=== PATIENT | female | born 1955 | race Caucasian/White ===

== ENCOUNTER 2016-08-11 22:39 | Emergency (ER) | payer OTHER ==
[2012-06-18 10:16] VITALS: BMI 24.9
[2016-08-11 23:28] LABS: BASOPHILS 0.3 % (0.0-2.0); EOSINOPHILS 0.2 % (0-7); HEMATOCRIT 40.7 % (36.0-48.0); HEMOGLOBIN 13.3 g/dL (12-16); IMMATURE GRANULOCYTES 0.3 % (0-5); LYMPHOCYTES 10.5 % (15-50); MCH 29.1 pg (26.0-34.0); MCHC 32.7 g/dL (31.0-37.0); MCV 89.1 fL (80.0-100.0); MEAN PLATELET VOLUME 9.7 fL (7.4-10.4); MONOCYTES 6.4 % (2-11); NEUTROPHILS 82.3 % (40-80); PLATELET COUNT 213 10x3/uL (130-400); RBC 4.57 10x6/uL (4.00-5.40); RDW 13.4 % (11.5-14.5); WBC 14.1 10x3/uL (4.8-10.8)
[2016-08-11 23:44] LABS: ALKALINE PHOSPHATASE 57 U/L (46-116); ALT (SGPT) 23 U/L (10-68); BILIRUBIN - TOTAL 0.28 mg/dL (0.2-1.3); CALC OSMOLALITY 290 mosm/kg (275-300); CALCIUM 8.6 mg/dL (8.5-10.1); CARBON DIOXIDE 29.3 mmol/L (21.0-32.0); CHLORIDE - SERUM 107 mmol/L (98-107); CREATININE - SERUM 0.9 mg/dL (0.6-1.3); POTASSIUM - SERUM 3.9 mmol/L (3.5-5.1); PROTEIN - SERUM 6.7 g/dL (6.4-8.2); SODIUM 145 mmol/L (136-145); UREA NITROGEN 17 mg/dL (7-18); eGFR NON AFRICAN AMERICAN 67 mL/min (90-120)
[2016-08-11 23:46] LABS: GLUCOSE 107 mg/dL (74-106)
[2016-08-11 23:47] LABS: CREATINE KINASE 29 UL (21-215); TROPONIN-I < 0.017 ng/mL (0.000-0.060)
== END 2016-08-12 02:09 | disposition home or self-care (01) ==
LOC: D.ER 22:39
PROVIDERS: Family Medicine
DX: R06.00 Dyspnea, unspecified (principal); J95.00 Unspecified tracheostomy complication

== ENCOUNTER 2016-12-20 15:54 | Inpatient (IN) | payer OTHER ==
[~2016-12-20] VITALS: Ht 162.6 cm; Wt 74.2 kg
[2016-12-20] MEDS ORDERED: METFORMIN HCL500 M1 PO (16:14)
[2016-12-20] MEDS ORDERED: ZOLOFT100 MG PO (16:15)
[2016-12-20] MEDS ORDERED: GLUCOPHAGE1000 MG PO (16:17)
[2016-12-20 16:27] VITALS: BP 145/65; BMI 27.7
--- NOTE | 2016-12-20 16:43 | NUR ---
PATIENT ARRIVED DIRECT ADMIT. IV STARTED IN L FOREARM BY JUVENAL KIM. 22 G ON 1ST ATTEMPT. IV FLUIDS NS STARTED. ASSESSMENT AND HISTORY DONE. VOMITED CLEAR EMESIS APPROX 200 CC. MEDICATED WITH ZOFRAN.
[2016-12-20 17:19] LABS: HEMATOCRIT 40.3 % (36.0-48.0); HEMOGLOBIN 13.1 g/dL (12-16); MCH 29.2 pg (26.0-34.0); MCHC 32.5 g/dL (31.0-37.0); MEAN PLATELET VOLUME 10.6 fL (7.4-10.4); PLATELET COUNT 218 10x3/uL (130-400); RBC 4.48 10x6/uL (4.00-5.40); RDW 14.1 % (11.5-14.5); WBC 21.8 10x3/uL (4.8-10.8)
[2016-12-20 17:27] LABS: ALBUMIN 3.1 g/dL (3.4-5.0); ANION GAP 12.7 mmol/L (8-16); BILIRUBIN - TOTAL 0.96 mg/dL (0.2-1.3); CALCIUM 9.5 mg/dL (8.5-10.1); CARBON DIOXIDE 31.2 mmol/L (21.0-32.0); CREATININE - SERUM 1.9 mg/dL (0.6-1.3); POTASSIUM - SERUM 3.9 mmol/L (3.5-5.1); PROTEIN - SERUM 8.1 g/dL (6.4-8.2)
[2016-12-20 17:39] LABS: LYMPHOCYTES 4 % (15-50); MONOCYTES 1 % (2-11); NEUTROPHILS 84 % (40-80); PLATELET ESTIMATE NORMAL
[2016-12-20] MEDS ORDERED: HUMALOG MIX 75/10 ML SC ×2 (18:21)
[2016-12-20] MEDS ORDERED: HUMALOG 30100 UNITS/ SC (18:22)
--- NOTE | 2016-12-20 18:31 | NUR ---
FSBS 498. 12 UNITS OF INSULIN GIVEN PER SS. MED REC. UPDATED MOST ACCURATE FOR WHAT PT IS CURRENTLY ON. PT SITTING UP IN BED RESTING QUIETLY WITH FAMILY AT BEDSIDE. DENIES ANY CURRENT PAIN OR NEEDS. WILL CTM.
[2016-12-20 19:00] VITALS: BP 144/69
--- NOTE | 2016-12-20 21:10 | NUR ---
ZOFRAN 4MG IV ADMIN FOR NAUSEA/VOMITING CLEAR EMESIS. CHECKED BS WITH GLUCOMETER AT 314. ADMIN 8 UNITS HUMALOG. REQUESTED SLEEPING PILL. STATING "I HAVE NOT SLEEP GOOD FOR 4 DAYS". INFORMED HOUSE SUPVR OF PATIENT'S REQUEST.
--- NOTE | 2016-12-20 22:30 | NUR ---
ADMIN AMBIEN 10 MG PO WITH FEW SIPS OF WATER. REQUESTED LIGHTS OFF AND DOOR CLOSED TO SLEEP.
[2016-12-21] VITALS: BP 151/52
--- NOTE | 2016-12-21 02:00 | NUR ---
RESTING QUIETLY WITH EYES CLOSED. NO S/S OF DISTRESS OR DISCOMFORT. CALL LIGHT IN REACH. WILL CONT TO MONITOR.
--- NOTE | 2016-12-21 04:40 | NUR ---
ADMIN ZOFRAN 4MG IV FOR NAUSEA AND VOMITING.
--- NOTE | 2016-12-21 06:32 | NUR ---
ADMIN HUMALOG 6 UNITS FOR BS 289. NO C/O NAUSEA.
--- NOTE | 2016-12-21 07:00 | NUR ---
RECEIVED REPORT. ASSUMED CARE OF PATIENT. CALL LIGHT EM JACOBO. PATIENT RESTING ON HER RIGHT LATERAL SIDE. EASILY AROUSED. RESP EVEN AND UNLABORED. NO DISTRESS.
[2016-12-21 07:42] VITALS: BP 122/64
--- NOTE | 2016-12-21 08:58 | NUR ---
AM GLUCOPHAGE HELD PATIENT IS NPO AND RECEIVING COVERAGE WITH SLIDING SCALE INSULIN AT THIS TIME.
--- NOTE | 2016-12-21 11:35 | NUR ---
FSBS 256. 6 UNITS HUMALOG ADMINISTERED PER SLIDING SCALE. PATIENT CONTINUES TO HAVE NAUSEA AND ONE EPISODE OF EMESIS THIS AM BUT IS ASKING FOR CRANBERRY JUICE. INFORMED PATIENT REQUEST WILL BE PRESENTED TO .
[2016-12-21 11:53] VITALS: Ht 162.6 cm; Wt 74.2 kg
[2016-12-21 12:20] VITALS: BP 114/49
[2016-12-21 15:52] VITALS: BP 117/62
--- NOTE | 2016-12-21 16:40 | NUR ---
FSBS 242. 4 UNITS HUMALOG ADMINISTERED AT THIS TIME. NO DISTRESS.
--- NOTE | 2016-12-21 19:47 | NUR ---
PT RESTING ON LEFT SIDE. C/O THIRST. DENIES ANY OTHER NEEDS OR COMPLAINTS AT THIS TIME. NO S/S OF DISTRESS. WILL CONTINUE TO MONITOR
[2016-12-21 20:00] VITALS: BP 125/70
--- NOTE | 2016-12-21 23:44 | NUR ---
PT RESTING IN BED. NS INFUSING AT 75 TO LEFT FOREARM. PT DENIES ANY NEEDS AT THIS TIME. NO S/S OF DISTRESS. WILL CONTINUE TO MONITOR
--- NOTE | 2016-12-22 03:25 | NUR ---
PT SITTING ON SIDE OF BED. S/O NAUSEA. ZOFRAN GIVEN. A COOL WASHCLOTH GIVEN. NO S/S OF DISTRESS. WILL CONTINUE TO MONITOR
[2016-12-22 04:00] VITALS: BP 116/58
--- NOTE | 2016-12-22 05:52 | NUR ---
PT ASLEEP. RESPIRATIONS EVEN AND UNLABORED. NO S/S OF DISTRESS WILL CONTINUE TO MONITOR
--- NOTE | 2016-12-22 07:00 | NUR ---
RECEIVED REPORT. ASSUMED CARE OF PATIENT. PATIENT GETTING BACK TO BED AFTER AM SHOWER. CONNECTED TO IV FLUIDS ORDERED AT THIS TIME. RESP EVEN AND UNLABORED. DENIES NEEDS AT THIS TIME. NO DISTRESS.
--- NOTE | 2016-12-22 07:15 | NUR ---
PT IV IN LEFT FOREARM REMOVED WITH CATH INTACT. NEW 20G TO RIGHT FOREARM. PATENT. DRESSING CLEAN AND DRY. SWAB CAPS IN USE, HOOKED TO NS INFUSING AT 75
[2016-12-22 07:38] LABS: BASOPHILS 0.2 % (0-2); EOSINOPHILS 0.5 % (0-7); HEMATOCRIT 37.3 % (36.0-48.0); HEMOGLOBIN 11.8 g/dL (12-16); IMMATURE GRANULOCYTES 0.3 % (0-5); LYMPHOCYTES 6.8 % (15-50); MCH 28.9 pg (26.0-34.0); MCHC 31.6 g/dL (31.0-37.0); MCV 91.2 fL (80.0-100.0); MEAN PLATELET VOLUME 9.5 fL (7.4-10.4); MONOCYTES 7.2 % (2-11); PLATELET COUNT 204 10x3/uL (130-400); RBC 4.09 10x6/uL (4.00-5.40); RDW 14.2 % (11.5-14.5)
[2016-12-22 07:43] LABS: WBC 10.5 10x3/uL (4.8-10.8)
[2016-12-22 07:48] LABS: ANION GAP 13.9 mmol/L (8-16); CALCIUM 9.1 mg/dL (8.5-10.1); CARBON DIOXIDE 28.5 mmol/L (21.0-32.0); CREATININE - SERUM 1.5 mg/dL (0.6-1.3); POTASSIUM - SERUM 3.4 mmol/L (3.5-5.1)
[2016-12-22 08:00] VITALS: BP 135/62
[2016-12-22 10:55] LABS: APPEARANCE CLEAR (CLEAR); BACTERIA FEW /hpf (NONE SEEN); BILIRUBIN NEGATIVE (NEGATIVE); COLOR YELLOW (YELLOW); EPITHELIAL CELLS 0-5 /hpf (0-5); GLUCOSE 250 mg/dL (NEGATIVE); KETONE NEGATIVE (NEGATIVE); LEUKOCYTE ESTERASE TRACE (NEGATIVE); NITRITE NEGATIVE (NEGATIVE); PROTEIN NEGATIVE (NEGATIVE); RED CELLS - URINE 0-5 /hpf (0-5); SPECIFIC GRAVITY 1.015 (1.005-1.020); UROBILINOGEN NORMAL (NORMAL)
--- NOTE | 2016-12-22 11:33 | NUR ---
FSBS 288. 6 UNITS HUMALOG ADMINISTERED PER SLIDING SCALE. NO DISTRESS. CONSUMING POPSICKLE AT THIS TIME.
[2016-12-22 12:00] VITALS: BP 125/54
--- NOTE | 2016-12-22 13:07 | NUR ---
MEDICATED FOR NAUSEA. PATIENT WAS ABLE TO KEEP LUNCH DOWN BUT STARTED HAVING A SLIGHT NAUSEATED FEELING. SITTING UP IN BED AT THIS TIME, VISITOR AT BEDSIDE. NO DISTRESS. IV FLUIDS INFUSING ORDERED.
[2016-12-22 16:00] VITALS: BP 141/67
--- NOTE | 2016-12-22 19:26 | NUR ---
PT LAYING IN BED RESTING, C/O SEVERAL BMS OF LOOSE STOOL. DENIES ANY OTHER NEEDS. WILL CONTINUE TO MONTIOR
[2016-12-22 22:41] VITALS: BP 132/64
--- NOTE | 2016-12-23 02:09 | NUR ---
PT C/O FREQUENT STOOL THAT IS LOOSE. HAT PUT IN TOILET FOR CDT CHECK. RAW ON RECTUM BUT PASTE APPLIED. PT ALSO COMPLAINS OF NOT BEING ABLE TO SLEEP.PT ALSO COMPLAINS OF NAUSEA ZOFRAN IS OFFERED NO S/S OF DISTRESS. NO OTHER NEEDS WILL CONTINUE TO MONITOR
[2016-12-23 02:51] VITALS: BP 122/58
--- NOTE | 2016-12-23 04:57 | NUR ---
PT RESTING IN BED. STILL C/O FREQUENT LOOSE STOOLS. CDT IS NEG. PT STILL COMPLAINS ABOUT NOT BEING ABLE TO SLEEP. NO S/S OF DISTRESS. RESPIRATIONS EVEN AND UNLABORED. WILL CONTINUE TO MONITOR
[2016-12-23 05:23] LABS: BASOPHILS 0.2 % (0-2); HEMATOCRIT 34.5 % (36.0-48.0); HEMOGLOBIN 10.8 g/dL (12-16); IMMATURE GRANULOCYTES 0.3 % (0-5); LYMPHOCYTES 11.7 % (15-50); MCH 28.3 pg (26.0-34.0); MCHC 31.3 g/dL (31.0-37.0); MCV 90.6 fL (80.0-100.0); MEAN PLATELET VOLUME 10.2 fL (7.4-10.4); MONOCYTES 10.4 % (2-11); NEUTROPHILS 76.4 % (40-80); PLATELET COUNT 220 10x3/uL (130-400); RBC 3.81 10x6/uL (4.00-5.40); RDW 13.9 % (11.5-14.5); WBC 9.1 10x3/uL (4.8-10.8)
[2016-12-23 05:27] VITALS: BP 127/51
[2016-12-23 05:37] LABS: ANION GAP 11.1 mmol/L (8-16); CALCIUM 8.3 mg/dL (8.5-10.1); CARBON DIOXIDE 27.9 mmol/L (21.0-32.0)
--- NOTE | 2016-12-23 06:48 | NUR ---
PT BLOOD SUGAR WAS 270 6 UNITS OF HUMALOG GIVEN. PT RESTING NO S/S OF DISTRESS. WILL CONTINUE TO MONITOR
--- NOTE | 2016-12-23 07:30 | NUR ---
INTRODUCED MYSELF TO PT PRIMARY RN FOR TODAYS SHIFT. PT IS A&O SITTING UP IN BED RESTING QUIETLY. SHIFT ASSESSMENT COMPLETED. PT C/O DIARRHEA AND HAS NOTHING ORDERED, WILL CALL DOCTOR AND TRY TO OBTAIN ORDER. PT VOICED THANKS AND DENIES ANY CURRENT NEEDS. CL IN REACH, BED IN LOWEST, SIDE RAILS X2. WILL CPOC.
[2016-12-23 08:00] VITALS: BP 127/58
--- NOTE | 2016-12-23 09:59 | NUR ---
PT C/O DIARRHEA FOR THE PAST SEVERAL DAYS AND REQUESTED SOMETHING TO HELP. PROVIDED PT WITH PRN IMMODIUM. PT VOICED THANKS AND WOULD LIKE TO CONTINUE RESTING AT THIS TIME. DENIES ANY FURTHER NEEDS. CL IN REACH, BED IN LOWEST, SIDE RAILS X2. WILL CPOC.
--- NOTE | 2016-12-23 11:00 | NUR ---
FSBS 210. PT REC'D 4 UNITS OF SS INSULIN. PT C/O NAUSEA AND ALSO REC'D ZOFRAN REQUESTED. PT READY TO TRY MORE ADVANCED FOOD AND HAS BEEN ADVANCED TO A FULL LIQUID. NO FURTHER NEEDS NOTED AT THIS TIME. CL IN REACH. WILL CPOC.
[2016-12-23 12:00] VITALS: BP 123/62
[2016-12-23 16:00] VITALS: BP 129/56
--- NOTE | 2016-12-23 17:12 | NUR ---
FSBS 301. PT REC'D 12 UNITS PER SS INSULIN. INTIATED PTS IVPB LEVAQUIN INFUSING VIA R.FA PIV WITH DRSG CDI. PT C/O STILL BEING NAUSEATED BUT NEVER HAS THROWN UP. WILL PROVIDE PT WITH MORE ZOFRAN. PT DENIES ANY FURTHER DIARRHEA AND VOICED THANKS FROM IMMODIUM. NO FURTHER NEEDS AT THIS TIME. CL IN REACH, BED IN LOWEST, SIDE RAILS X2. WILL CPOC.
--- NOTE | 2016-12-23 20:00 | NUR ---
PT RESTING IN ROOM. HAPPY ABOUT NOT HAVING LOOSE STOOLS TODAY AND SAYS HER RAW BUTTOCKS IS FEELING BETTER. PT DENIES ANY NEEDS AT THIS TIME. NO S/S OF DISTRESS WILL CONTINUE TO MONITOR
[2016-12-23 21:50] VITALS: BP 147/62
--- NOTE | 2016-12-23 21:55 | NUR ---
REPORT GIVEN TO JIN KIM FROM [facility]. WILL TRANSFER TO [facility] SOON I GIVE PT 10 UNITS FOR A BLOOD SUGAR OF 300. PHARMACY IS BRINGING IT NOW. PT IS PACKING AND GETTING READY TO GO
--- NOTE | 2016-12-23 22:30 | NUR ---
PT RECEIVED TO ROOM 1215 VIA WHEELCHAIR ACCOMPANIED BY SPEEDER TENDER AND RN FROM [facility]. PAIN NOTED TO IV SITE. PT C/O BURNING WHEN FLUIDS STARTED. IV REMOVED VIA JULIO SAUCEDA. CATHETER TIP INTACT. PT ORIENTED TO ROOM AND CALL LIGHT.
--- NOTE | 2016-12-23 22:42 | NUR ---
NEW IV INITIATED PER JULIO SAUCEDA X1 SUCCESSFUL ATTEMPT. PT TOLERATED WELL. PATENT. DRESSING CDI. NS INITIATED AT THIS TIME. ASSESSMENT COMPLETED PER FLOW SHEET. PT DENIES NEEDS. BED LOW. PHONE AND CALL LIGHT IN REACH. SRX2.
[2016-12-24 00:05] VITALS: BP 125/76
--- NOTE | 2016-12-24 00:05 | NUR ---
PT RESTING QUIETLY AT THIS TIME WATCHING TV. VSS. PT DENIES NEEDS. BED LOW. PHONE AND CALL LIGHT IN REACH. SRX2.
--- NOTE | 2016-12-24 02:10 | NUR ---
PT RESTING QUIETLY IN BED ON CELL PHONE. DENIES NEEDS. BED LOW. PHONE AND CALL LIGHT IN REACH. SRX2.
[2016-12-24 03:55] VITALS: BP 136/73
--- NOTE | 2016-12-24 03:55 | NUR ---
PT LYING IN BED RESTING QUIETLY WITH EYES CLOSED. AROUSED EASILY. VSS. PT DENIES NEEDS AT THIS TIME. BED LOW. PHONE AND CALL LIGHT IN REACH. SRX2.
--- NOTE | 2016-12-24 05:33 | NUR ---
PT RESTING QUIETLY AT THIS TIME WITH EYES CLOSED. RESPIRATIONS EVEN, NON-LABORED. NO ACUTE DISTRESS NOTED AT THIS TIME. BED LOW. PHONE AND CALL LIGHT IN REACH. SRX2.
[2016-12-24 06:08] LABS: ANION GAP 10.6 mmol/L (8-16); CARBON DIOXIDE 28.7 mmol/L (21.0-32.0); CREATININE - SERUM 0.9 mg/dL (0.6-1.3); POTASSIUM - SERUM 3.3 mmol/L (3.5-5.1)
--- NOTE | 2016-12-24 06:13 | NUR ---
PT FSBS 225 AT THIS TIME. ADMINISTERED 8 UNIT HUMALOG TO LLQ ABD. PT TOLERATED WELL.
[2016-12-24 06:18] LABS: BASOPHILS 0.2 % (0-2); EOSINOPHILS 0.9 % (0-7); HEMATOCRIT 34.4 % (36.0-48.0); HEMOGLOBIN 11.1 g/dL (12-16); IMMATURE GRANULOCYTES 0.7 % (0-5); LYMPHOCYTES 12.3 % (15-50); MCH 28.8 pg (26.0-34.0); MCHC 32.3 g/dL (31.0-37.0); MCV 89.4 fL (80.0-100.0); NEUTROPHILS 73.9 % (40-80); PLATELET COUNT 251 10x3/uL (130-400); RBC 3.85 10x6/uL (4.00-5.40); RDW 13.8 % (11.5-14.5)
[2016-12-24 07:15] VITALS: BP 143/72
--- NOTE | 2016-12-24 07:25 | NUR ---
PT WAS RECEIVED LYING IN BED. PT STATES THAT SHE IS A DIABETIC AND THEY ARE SENDING HER REGULAR DIET. SHE STATES HER PAIN IS A 4. SHE IS HURTING IN HER MER " AROUND MY KIDNEY AREAS". GEN- AWAKE AND ALERT. LUNGS- CLEAR. HEART- RRR. ABD- SOFT, NT. BS+. EXT- NO EDEMA NOTED. PT HAS IV LEFT WRIST WHICH IS INTACT AND PATENT. BED IS LOW, SIDE RAILS UP X 2 AND CALL LIGHT IN REACH.
--- NOTE | 2016-12-24 08:15 | NUR ---
PT IS RESTING IN BED. SHE OFFERS NO COMPLAINTS.
--- NOTE | 2016-12-24 09:00 | NUR ---
PT IS STILL HAVING PROBLEMS WITH DIARRHEA. GOT HER SOME ADULT DIAPERS.
--- NOTE | 2016-12-24 09:43 | NUR ---
PT REQUESTED IMMODIUM. STATES THAT SHE IS STILL HAVING DIARRHEA. IMMODIUM 2MG GIVEN PO.
--- NOTE | 2016-12-24 10:14 | NUR ---
PT IS RESTING IN BED. SHE OFFERS NO COMPLAINTS AT THIS TIME.
--- NOTE | 2016-12-24 10:54 | NUR ---
PT IS SLEEPING IV BAG CHANGED OUT. BED IS LOW, SIDE RAILS UP X 2 AND CALL LIGHT IN REACH.
--- NOTE | 2016-12-24 11:46 | NUR ---
PTS BS WAS 309. HUMALOG 12 UNITS GIVEN R ARM.
--- NOTE | 2016-12-24 12:21 | NUR ---
PT IS ON ZOLOFT 100 MG DAILY. ZOLOFT ORDERED.
--- NOTE | 2016-12-24 13:23 | NUR ---
PT IS LYING IN BED VISITING WITH FRIENDS. SHE OFFERS NO COMPLAINTS AT THIS TIME. CALLED PHARMACY TO GET HER ZOLOFT. THEY STATED THEY WOULD BRING IT.
--- NOTE | 2016-12-24 15:36 | NUR ---
PT IS LYING IN BED VISITING WITH FAMILY. SHE OFFERS NO COMPLAINTS. PT OBTAINED CLEAN CATCH URINE TO BE SENT TO LAB. CONTACTED LAB TO SWINE NUTRITIONIST SINCE I WAS THE ONLY ONE HERE.
[2016-12-24 16:02] LABS: APPEARANCE CLEAR (CLEAR); BILIRUBIN NEGATIVE (NEGATIVE); COLOR YELLOW (YELLOW); GLUCOSE 250 mg/dL (NEGATIVE); KETONE NEGATIVE (NEGATIVE); LEUKOCYTE ESTERASE TRACE (NEGATIVE); NITRITE NEGATIVE (NEGATIVE); PROTEIN NEGATIVE (NEGATIVE); UROBILINOGEN NORMAL (NORMAL)
[2016-12-24 16:03] LABS: EPITHELIAL CELLS OCC /hpf (0-5); RED CELLS - URINE OCC /hpf (0-5); WHITE CELLS - URINE 0-5 /hpf (0-5)
[2016-12-24 16:04] LABS: BACTERIA FEW /hpf (NONE SEEN)
--- NOTE | 2016-12-24 16:29 | NUR ---
PT REQUEST MOTRIN FOR PAIN. GIVEN PO 800 MG.
--- NOTE | 2016-12-24 17:04 | NUR ---
PTS BS WAS 232 GIVEN 12 UNITS OF HUMALOG LEFT UPPER ARM SUBCU. DEMETRIA LANZA RN WITNESSED.
[2016-12-24 20:30] VITALS: BP 135/72
--- NOTE | 2016-12-24 20:30 | NUR ---
PT RECEIVED SITTING UP IN BED WATCHING TV AT THIS TIME. VSS. IV NOTED TO LEFT WRIST INFUSING NS @ 75 WITH INTERMITTENT IVPB ANTIBIOTICS. HEART RRR. LUNG SOUNDS CLEAR BILATERALLY. BOWEL SOUNDS ACTIVE X4 QUADRENTS. PEDAL PULSES EQUAL BILATERALLY. PT DENIES NEEDS AT THIS TIME. BED LOW. PHONE AND CALL LIGHT IN REACH. SRX2.
--- NOTE | 2016-12-24 22:10 | NUR ---
PT RESTING QUIETLY WITH EYES CLOSED. RESPIRATIONS EVEN, NON-LABORED. NO ACUTE DISTRESS NOTED AT THIS TIME. BED LOW. PHONE AND CALL LIGHT IN REACH. SRX2.
--- NOTE | 2016-12-24 23:54 | NUR ---
PT RESTING QUIETLY AT THIS TIME WITH EYES CLOSED. AROUSED EASILY. PT REFUSED HUMALOG SLIDING SCALE AND ONLY WANTED TO TAKE HUMALOG 75/25 AT THIS TIME FOR FSBS OF 299. ADMINISTERED TO RLQ. VSS. PT DENIES NEEDS. BED LOW. PHONE AND CALL LIGHT IN REACH. SRX2.
[2016-12-25 00:19] VITALS: BP 140/70
[2016-12-25 03:20] VITALS: BP 137/76
--- NOTE | 2016-12-25 03:20 | NUR ---
PT RESTING QUIETLY AT THIS TIME WITH EYES CLOSED. AROUSED EASILY. DENIES NEEDS AT THIS TIME. BED LOW. PHONE AND CALL LIGHT IN REACH. SRX2.
[2016-12-25 05:02] LABS: BASOPHILS 0.6 % (0-2); EOSINOPHILS 1.2 % (0-7); HEMATOCRIT 34.8 % (36.0-48.0); HEMOGLOBIN 11.1 g/dL (12-16); IMMATURE GRANULOCYTES 1.5 % (0-5); LYMPHOCYTES 16.3 % (15-50); MCH 28.4 pg (26.0-34.0); MCHC 31.9 g/dL (31.0-37.0); MEAN PLATELET VOLUME 9.4 fL (7.4-10.4); MONOCYTES 11.4 % (2-11); PLATELET COUNT 270 10x3/uL (130-400); RBC 3.91 10x6/uL (4.00-5.40); RDW 13.8 % (11.5-14.5); WBC 8.2 10x3/uL (4.8-10.8)
[2016-12-25 05:18] LABS: ANION GAP 11.7 mmol/L (8-16); CALCIUM 8.4 mg/dL (8.5-10.1); CARBON DIOXIDE 27.6 mmol/L (21.0-32.0); CREATININE - SERUM 0.9 mg/dL (0.6-1.3)
[2016-12-25 05:19] LABS: POTASSIUM - SERUM 3.3 mmol/L (3.5-5.1)
[2016-12-25 07:35] VITALS: BP 148/63
--- NOTE | 2016-12-25 08:06 | NUR ---
SITTING UP IN BED. ALERT AND ORIENTED X4. DENIES ANY NEEDS AT THIS TIME. CALL LIGHT IN REACH. WILL CONTINUE TO MONITOR.
--- NOTE | 2016-12-25 09:30 | NUR ---
LYING IN BED RESTING QUIETLY. DENIES ANY PAIN OR NEEDS AT THIS TIME. CALL LIGHT IN REACH. WILL CONTINUE TO MONITOR.
--- NOTE | 2016-12-25 12:34 | NUR ---
SITTING UP IN BED EATING LUNCH. DENIES ANY NEEDS AT THIS TIME. CALL LIGHT IN REACH.
--- NOTE | 2016-12-25 14:02 | NUR ---
SITTING UP IN BED. RESPIRATORY AT BEDSIDE ADMINISTERING UPDRAFT TREATMENT, NAD NOTED. CALL LIGHT IN REACH. WILL CONTINUE TO MONITOR.
--- NOTE | 2016-12-25 15:41 | NUR ---
SITTING UP IN BED WATCHING TV. DENIES ANY NEEDS. CHANGED OUT NS TO 1/2 NS @ 75ML/HR PER ORDERS. DENIES ANY PAIN OR DISCOMFORT. WILL CONTINUE TO MONITOR. CALL LIGHT IN REACH
[2016-12-25 16:00] VITALS: BP 153/50
--- NOTE | 2016-12-25 16:13 | NUR ---
* Is the patient Alert and Oriented? Yes 0 * How many steps to enter\exit or inside your home? 5 0 * PCP Dr. Nguyen 0 * Pharmacy [facility] on [address] 0 * Preadmission Environment Home Alone 0 * ADLs Independent 0 * Equipment Cane Walker Wheelchair 0 * List name and contact numbers for known caregivers / representatives who currently or will assist patient after discharge: - Pricilla Wallis [phone] 0 * Additional services required to return to the preadmission environment? No 0 * Can the patient safely return to the preadmission environment? Yes 0 * Has this patient been hospitalized within the prior 30 days at any hospital? No Patient Name: DON SEN Admission Status: Urgent Accout number: [id number] Admission Date: 12-23-2016 : 1955 Admission Diagnosis: Attending: ELIZA Current LOS: 2 Anticipated DC Date: 12-26-2016 Planned Disposition: Home Primary Insurance: [employer] [facility] Discharge Planning Comments: CM met with patient to assess dc plans/needs. Patient states she lives alone and is independent with all ADL's & IADL's. She has a walker, WC, & cane but does not use them. She has had home health services in the past with [facility]. She does not think she will need HH at discharge. She states her sister lives next door and will help her with any needs. CM will follow & assist as needed. Arc Air Operator: Adia Zacarias
--- NOTE | 2016-12-25 18:36 | NUR ---
RESITED LEFT FOREARM IV DUE TO INFILTRATING TO RIGHT WRIST 22G X2 ATTEMPTS, DRESSING INTACT AND HOOKED UP TO LEVOFLOXACIN 100ML/HR. PT TOLERATED WELL. DENIES ANY NEEDS OR CONCERNS AT THIS TIME. WILL CONTINUE TO MONITOR IV.
[2016-12-25 19:21] VITALS: BP 139/48
--- NOTE | 2016-12-25 19:21 | NUR ---
ASSESSMENT PER FLOW SHEET, VS OBTAINED, IV IN RIGHT WRIST INTACT WITH NO REDNESS OR EDEMA INFUSING VIA PUMP 1/2NS AT 100 ML/HR, PT REPORTS FLATUS, NO BM TODAY, AND VOIDING WITH NO DIFFICULTY, PT RATES FLANK PAIN 2/10, STATES "IT'S NOT THAT BAD", DENIES NEED FOR PAIN MED, PT DENIES NEEDS AT THIS TIME
--- NOTE | 2016-12-25 20:23 | NUR ---
PT WATCHING TV, REQUESTED AND SERVED DIET LEMON TORRES MARTINEZ, DENIES FURTHER NEEDS
--- NOTE | 2016-12-25 21:17 | NUR ---
PT AWAKE, FSBS 106, NO INSULIN PER SLIDING SCALE, PT REFUSES /25, PT REQUESTS SOMETHING TO SLEEP, INFORMED PT THAT I WILL CHECK AND SEE WHAT IS ORDERED, PT VERBALIZES UNDERSTANDING
--- NOTE | 2016-12-25 21:40 | NUR ---
ADM RESTORIL PO PER MD ORDERS, SEE EMAR
--- NOTE | 2016-12-25 22:30 | NUR ---
PT RESTING WITH EYES CLOSED, RESP QUIET, NO DISTRESS NOTED, LEFT UNDISTURBED AT THIS TIME
--- NOTE | 2016-12-26 00:32 | NUR ---
PT RESTING WITH EYES CLOSED, RESP QUIET, NO DISTRESS NOTED, LEFT UNDISTURBED AT THIS TIME
--- NOTE | 2016-12-26 02:15 | NUR ---
PT RESTING WITH EYES CLOSED, RESP QUIET, NO DISTRESS NOTED, LEFT UNDISTURBED AT THIS TIME
[2016-12-26 03:30] VITALS: BP 144/42
--- NOTE | 2016-12-26 03:30 | NUR ---
PT AWAKE, VS OBTAINED, PUMPS CLEARED, PT DENIES NEEDS OR PAIN AT THIS TIME
--- NOTE | 2016-12-26 04:13 | NUR ---
NEW BAG OF 1/2NS HUNG PER MD ORDERS, SEE EMAR, EMPTIED 1200 MLS OF YELLOW URINE FROM [facility], PT REPORTS 4 VOIDS
--- NOTE | 2016-12-26 05:36 | NUR ---
PT AWAKE, ADM PROTONIX PO PER MD ORDERS, PT REQUESTED AND PROVIDED EXTRA BLANKET, DENIES FURTHER NEEDS
--- NOTE | 2016-12-26 07:00 | NUR ---
SHIFT REPORT TO DAY SHIFT
[2016-12-26 07:01] LABS: BASOPHILS 0.4 % (0-2); EOSINOPHILS 1.3 % (0-7); HEMATOCRIT 32.8 % (36.0-48.0); HEMOGLOBIN 10.7 g/dL (12-16); IMMATURE GRANULOCYTES 3.6 % (0-5); LYMPHOCYTES 21.1 % (15-50); MCH 28.9 pg (26.0-34.0); MCHC 32.6 g/dL (31.0-37.0); MCV 88.6 fL (80.0-100.0); MEAN PLATELET VOLUME 9.5 fL (7.4-10.4); NEUTROPHILS 64.6 % (40-80); PLATELET COUNT 278 10x3/uL (130-400); RDW 14.1 % (11.5-14.5); WBC 7.4 10x3/uL (4.8-10.8)
[2016-12-26 07:10] LABS: ANION GAP 9.8 mmol/L (8-16); CALCIUM 8.4 mg/dL (8.5-10.1); CARBON DIOXIDE 29.7 mmol/L (21.0-32.0); CREATININE - SERUM 0.9 mg/dL (0.6-1.3); POTASSIUM - SERUM 3.5 mmol/L (3.5-5.1)
--- NOTE | 2016-12-26 07:30 | NUR ---
LYING ON LEFT SIDE EYES CLOSED RESTING QUIETLY. EASILY AROUSED WITH VERBAL STIMULI. DENIES ANY PAIN OR DISCOMFORT. CALL LIGHT IN REACH. WILL CONTINUE TO MONITOR.
[2016-12-26 07:45] VITALS: BP 135/51
--- NOTE | 2016-12-26 09:45 | NUR ---
SITTING UP IN BED LOOKING AT PHONE. DENIES ANY PAIN OR DISCOMFORT. ALERT AND ORIENTED X4. CALL LIGHT IN REACH. WILL CONTINUE TO MONITOR.
--- NOTE | 2016-12-26 13:08 | NUR ---
Nutrition Follow Up: Pt reported that her appetite was improving. She stated that she is feeling much better. Pt is eating 63% meal avg on a diabetic diet. +BM 12/23/16. Wt stable. Labs reviewed. Meds noted. Rec continue current diet as tolerated. RD following.
[2016-12-26] MEDS ORDERED: LEVAQUIN500 MG PO (14:06)
--- NOTE | 2016-12-26 15:11 | NUR ---
SITTING UP IN BED DOING CROSSWORD PUZZLE. DENIES ANY CONCERNS AT THIS TIME. CALL LIGHT IN REACH
--- NOTE | 2016-12-26 16:05 | NUR ---
REVIEWED DISCHARGE INSTRUCTIONS AND MEDICATIONS WITH PATIENT. NO CONCERNS VOICED. PT REFUSED TO BE ESCORTED OUT VIA WHEELCHAIR. PATIENTS FAMILY HERE TO PICK HER UP UPON DISCHARGE PT WALKED WITH FAMILY.
== END 2016-12-26 17:23 | disposition home or self-care (01) | DRG 872 ==
LOC: D.M2 15:54 → OBSVTIME 15:54 → D.M2 15:54 → D.WS 12-23 22:08
PROVIDERS: Family Medicine; ADMIT Emergency Medicine
DX: A41.9 Sepsis, unspecified organism (principal); N39.0 Urinary tract infection, site not specified; B96.20 Unspecified Escherichia coli [E. coli] as the cause of diseases classified elsewhere; E11.40 Type 2 diabetes mellitus with diabetic neuropathy, unspecified; E11.65 Type 2 diabetes mellitus with hyperglycemia; I10 Essential (primary) hypertension; K21.9 Gastro-esophageal reflux disease without esophagitis; Z87.891 Personal history of nicotine dependence

== ENCOUNTER → 2017-01-01 15:03 | Outpatient (CLI) | payer OTHER ==
[2016-12-21 11:53] VITALS: BMI 27.6
[~2017-01-01 15:03] MED LIST: GLUCOPHAGE1000 MG PO; HUMALOG 30100 UNITS/ SC; HUMALOG MIX 75/10 ML SC; LEVAQUIN500 MG PO; METFORMIN HCL500 M1 PO; ZOLOFT100 MG PO
== END | disposition home or self-care (01) ==
LOC: D.MAMMO 12-26 09:00
DX: N63 Unspecified lump in breast (principal)

== ENCOUNTER → 2017-01-08 08:52 | Outpatient (CLI) | payer OTHER ==
[2016-12-21 11:53] VITALS: BMI 27.6
== END | disposition home or self-care (01) ==
LOC: D.US 08:52
DX: N63 Unspecified lump in breast (principal)

== ENCOUNTER 2017-01-12 22:13 | Inpatient (IN) | payer OTHER ==
[~2017-01-12] VITALS: Ht 162.6 cm; Wt 74.1 kg
[2017-01-12 22:49] LABS: BASOPHILS 0.2 % (0-2); EOSINOPHILS 0.6 % (0-7); HEMATOCRIT 46.2 % (36.0-48.0); HEMOGLOBIN 15.1 g/dL (12-16); IMMATURE GRANULOCYTES 0.3 % (0-5); LYMPHOCYTES 19.5 % (15-50); MCH 29.3 pg (26.0-34.0); MCHC 32.7 g/dL (31.0-37.0); MCV 89.5 fL (80.0-100.0); MEAN PLATELET VOLUME 9.4 fL (7.4-10.4); MONOCYTES 8.7 % (2-11); NEUTROPHILS 70.7 % (40-80); RBC 5.16 10x6/uL (4.00-5.40); RDW 14.1 % (11.5-14.5); WBC 10.6 10x3/uL (4.8-10.8)
[2017-01-12 22:51] LABS: PLATELET COUNT 356 10x3/uL (130-400)
[2017-01-12 22:52] LABS: APPEARANCE CLEAR (CLEAR); BILIRUBIN NEGATIVE (NEGATIVE); COLOR YELLOW (YELLOW); GLUCOSE NEGATIVE (NEGATIVE); KETONE NEGATIVE (NEGATIVE); LEUKOCYTE ESTERASE NEGATIVE (NEGATIVE); NITRITE NEGATIVE (NEGATIVE); PROTEIN NEGATIVE (NEGATIVE); SPECIFIC GRAVITY 1.015 (1.005-1.020); UROBILINOGEN NORMAL (NORMAL)
[2017-01-12 23:08] LABS: HELICOBACTER PYLORI IGG NEGATIVE (NEGATIVE)
[2017-01-12 23:19] LABS: ALBUMIN 3.9 g/dL (3.4-5.0); ANION GAP 14.5 mmol/L (8-16); BILIRUBIN - TOTAL 0.4 mg/dL (0.2-1.3); CALCIUM 9.1 mg/dL (8.5-10.1); CARBON DIOXIDE 30.5 mmol/L (21.0-32.0); CREATININE - SERUM 1.1 mg/dL (0.6-1.3); PROTEIN - SERUM 8.2 g/dL (6.4-8.2)
[2017-01-13] VITALS: BP 164/53
--- NOTE | 2017-01-13 00:17 | NUR ---
REPORT FROM JEANNE IN ER RECIEVED.
--- NOTE | 2017-01-13 01:00 | NUR ---
PT BROUGHT BY WHEELCHAIR TO ROOM 2124 AT 0019. ALERT/ORIENTED AND ABLE TO FOLLOW ALL DIRECTIONS. ADMISSION HISTORY AND ASSESSMENT COMPLETED. HOME MEDS REVIEWED.
--- NOTE | 2017-01-13 01:30 | NUR ---
DILAUDID TURBINE INSPECTOR INITIATED AND PT EDUCATION ON USAGE.
[2017-01-13 02:09] VITALS: BP 164/53; BMI 27.1
--- NOTE | 2017-01-13 03:34 | NUR ---
PT RESTING WITH EYES CLOSED. NO DISTRESS. MONITOR AND CPOC.
[2017-01-13 06:17] LABS: CHOL - HDL RATIO 5.7 ratio (2.3-4.1); LDL-HDL RATIO 3.7 ratio (1.5-3.5)
[2017-01-13 08:00] VITALS: BP 146/77
--- NOTE | 2017-01-13 09:53 | NUR ---
ASSESSMENT COMPLETED. PT HAS NO TELEMERTY. RIGHT UPPER ARM WITH NS AT 30 AND DILAUDID APPLICATION PROCESSOR AT 0.2. . UP AB RASHIDA. TO CT SCAN PER WC.
[2017-01-13 12:00] VITALS: BP 160/83
[2017-01-13 12:25] LABS: BASOPHILS 0.3 % (0-2); EOSINOPHILS 0.6 % (0-7); HEMATOCRIT 43.6 % (36.0-48.0); HEMOGLOBIN 13.6 g/dL (12-16); IMMATURE GRANULOCYTES 0.4 % (0-5); LYMPHOCYTES 27.6 % (15-50); MCH 28.6 pg (26.0-34.0); MCHC 31.2 g/dL (31.0-37.0); MEAN PLATELET VOLUME 9.5 fL (7.4-10.4); MONOCYTES 8.9 % (2-11); NEUTROPHILS 62.2 % (40-80); PLATELET COUNT 307 10x3/uL (130-400); RBC 4.75 10x6/uL (4.00-5.40); RDW 14.5 % (11.5-14.5)
[2017-01-13 12:29] LABS: MCV 91.8 fL (80.0-100.0)
[2017-01-13 12:30] LABS: ALBUMIN 3.2 g/dL (3.4-5.0); ANION GAP 14.4 mmol/L (8-16); BILIRUBIN - TOTAL 0.28 mg/dL (0.2-1.3); CALCIUM 8.5 mg/dL (8.5-10.1); CARBON DIOXIDE 26.1 mmol/L (21.0-32.0); POTASSIUM - SERUM 3.5 mmol/L (3.5-5.1); PROTEIN - SERUM 7.5 g/dL (6.4-8.2)
--- NOTE | 2017-01-13 13:36 | NUR ---
FAMILY AT BEDSIDE. DENIES ANY NEEDS. CALL LIGHT IN REACH WITH ST UP. ONSITE HEALTH COACH PUMP IN USE
[2017-01-13 13:38] VITALS: Ht 162.6 cm; Wt 74.1 kg
--- NOTE | 2017-01-13 14:29 | NUR ---
RESTING QUIETLY NAD NOTED
[2017-01-13 16:00] VITALS: BP 145/70
--- NOTE | 2017-01-13 18:43 | NUR ---
LYING QUIETLY. IV TO NS AT 100 CC/HR.NPO AT MN FOR EST TOMORROW. WILL MONITOR
[2017-01-13 19:00] VITALS: BP 139/62
--- NOTE | 2017-01-13 19:30 | NUR ---
RECEIVED REPORT, WILL ASSUME CARE OF PT, PT SLEEPING ON L.SIDE, BED IS LOW, SRX2, CALL LIGHT IN REACH, WILL CONTINUE PLAN OF CARE
--- NOTE | 2017-01-13 19:45 | NUR ---
SPOKE WITH PATIENT AND HER BROTHER. DISCUSSED PLAN OF CARE AND PENDING PROCEDURES. PT CURRENTLY USING WOOD TYPE CUTTER FOR PAIN AND IS COMFORTABLE. MONITOR AND CPOC.
[2017-01-14] VITALS: BP 115/72
--- NOTE | 2017-01-14 03:21 | NUR ---
ASSESSMENT COMPLETE, SEE FLOWSHEET, PT HAS BEEN NPO SINCE MIDNIGHT, BED IS LOW, SRX2, CALL LIGHT IN REACH, WILL CONTINUE TO MONITOR
[2017-01-14 04:00] VITALS: BP 115/63
[2017-01-14 06:46] LABS: BASOPHILS 0.2 % (0-2); EOSINOPHILS 0.9 % (0-7); HEMATOCRIT 36.9 % (36.0-48.0); HEMOGLOBIN 11.6 g/dL (12-16); LYMPHOCYTES 29.3 % (15-50); MCH 28.6 pg (26.0-34.0); MCHC 31.4 g/dL (31.0-37.0); MCV 91.1 fL (80.0-100.0); MEAN PLATELET VOLUME 9.3 fL (7.4-10.4); MONOCYTES 10.1 % (2-11); NEUTROPHILS 59.5 % (40-80); RBC 4.05 10x6/uL (4.00-5.40); RDW 14.2 % (11.5-14.5)
[2017-01-14 06:50] LABS: PLATELET COUNT 222 10x3/uL (130-400); WBC 5.5 10x3/uL (4.8-10.8)
[2017-01-14 07:04] LABS: ALBUMIN 2.7 g/dL (3.4-5.0); ANION GAP 9.9 mmol/L (8-16); BILIRUBIN - TOTAL 0.3 mg/dL (0.2-1.3); CALCIUM 8.2 mg/dL (8.5-10.1); CARBON DIOXIDE 30.6 mmol/L (21.0-32.0); CREATININE - SERUM 0.9 mg/dL (0.6-1.3); POTASSIUM - SERUM 3.5 mmol/L (3.5-5.1); PROTEIN - SERUM 6.2 g/dL (6.4-8.2)
[2017-01-14 08:57] VITALS: BP 118/62
--- NOTE | 2017-01-14 09:18 | NUR ---
ASSESSMENT COMPLETED.RIGHT UPPER ARM IV OF .5NS AT 100. DILAUDID 0.2/03/12 FACTORY CLERK UMP, ALERT AND ORIENTED. UP AB RASHIDA. DENIES ANY NEEDS. CALL LIGHT IN REACH WITH SR UP. AWAITING CT SCAN. WILL MONITOR.
[2017-01-14 12:20] VITALS: BP 138/65
[2017-01-14 15:48] VITALS: BP 138/61
--- NOTE | 2017-01-14 18:39 | NUR ---
LYING QUIETLY . DENIES ANY NEEDS, AWAITING RENAL US SO THAT SHW CAN EAT. WILL MONITOR
--- NOTE | 2017-01-14 19:30 | NUR ---
RECEIVED REPORT, WILL ASSUME CARE OF PT, PT IS WAITING ON RENAL ULTRESOUND, I CHECK, IT WAS NOT ORDER, GAVE PT SOMETHING TO EAT, BED IS LOW, SRX2, WILL CONTINUE PLAN OF CARE
[2017-01-14 20:00] VITALS: BP 152/72
--- NOTE | 2017-01-15 02:35 | NUR ---
ASSESSMENT COMPLETE, SEE FLOWSHEET, PT AWAKE, DENIES ANY NEEDS, BED IS LOW, SRX2, CALL LIGHT IN REACH, WILL CONTINUE PLAN OF CARE
[2017-01-15 04:00] VITALS: BP 175/82
--- NOTE | 2017-01-15 05:17 | NUR ---
PT RESTING WITH NO DISTRESS. NO LONGER CONNECTED TO MANAGED CARE COORDINATOR, STATES SHE WILL BE GOING HOME TODAY AND DOES NOT NEED IT. CPOC.
[2017-01-15 06:42] LABS: BASOPHILS 0.4 % (0-2); EOSINOPHILS 2.1 % (0-7); HEMATOCRIT 38.9 % (36.0-48.0); HEMOGLOBIN 12.4 g/dL (12-16); IMMATURE GRANULOCYTES 0.2 % (0-5); LYMPHOCYTES 31.7 % (15-50); MCH 28.2 pg (26.0-34.0); MCHC 31.9 g/dL (31.0-37.0); MEAN PLATELET VOLUME 9.5 fL (7.4-10.4); MONOCYTES 10.3 % (2-11); NEUTROPHILS 55.3 % (40-80); PLATELET COUNT 237 10x3/uL (130-400); RBC 4.39 10x6/uL (4.00-5.40); RDW 13.8 % (11.5-14.5); WBC 5.2 10x3/uL (4.8-10.8)
[2017-01-15 06:43] LABS: ANION GAP 10.3 mmol/L (8-16); BILIRUBIN - TOTAL 0.43 mg/dL (0.2-1.3); CALCIUM 8.4 mg/dL (8.5-10.1); CARBON DIOXIDE 30.3 mmol/L (21.0-32.0); CREATININE - SERUM 0.9 mg/dL (0.6-1.3); POTASSIUM - SERUM 3.6 mmol/L (3.5-5.1); PROTEIN - SERUM 7.2 g/dL (6.4-8.2)
[2017-01-15 06:51] LABS: MCV 88.6 fL (80.0-100.0)
[2017-01-15 08:00] VITALS: BP 106/61
--- NOTE | 2017-01-15 08:15 | NUR ---
PATIENT AWAKE NO CO PAIN. WILL CONTINUE TO MONITOR.
--- NOTE | 2017-01-15 10:12 | NUR ---
RESTING QUIELTY WITHOUT ANY PAIN. INSTRUCTED ON OBTAINING STOOL SPECIMEN.
--- NOTE | 2017-01-15 13:10 | NUR ---
ORDER RECIEVED FOR DISCHARGE. IV REMOVED WITH TIP INTACT. NO BLEEDING NOR SIGNS OF INFECTION. DRESSING PLACED. DISCHARGE INSTRUCTIONS GIVEN TO PT AND SHE VERBALIZES UNDERSTANDING. PT REFUSES WC. WALKED WITH PT TO HER CAR PARKED OUT FRONT. LISANDRO WELL.
== END 2017-01-15 13:13 | disposition home or self-care (01) | DRG 440 ==
LOC: D.ER 22:13 → D.M2 23:51
PROVIDERS: Emergency Medicine; Nurse Practitioner Acute Care; ADMIT Family Medicine
DX: K85.90 Acute pancreatitis without necrosis or infection, unspecified (principal); E11.65 Type 2 diabetes mellitus with hyperglycemia; Z79.4 Long term (current) use of insulin; I10 Essential (primary) hypertension; F32.9 Major depressive disorder, single episode, unspecified; E27.8 Other specified disorders of adrenal gland; N94.89 Other specified conditions associated with female genital organs and menstrual cycle; N20.0 Calculus of kidney